=== PATIENT | female | born 1965 | race African-American/Black ===

== ENCOUNTER 2016-10-21 11:02 | Emergency (ER) | payer OTHER ==
[~2016-10-21] VITALS: Ht 172.7 cm; Wt 94.3 kg
[~2016-10-21 11:02] MED LIST: ACETAMINOPHEN-1 EAC1 PO; AMBIEN 5 MG TABL5 M1 PO; AMITRIPTYLINE H50 M2 GT; BRINTELLIX10 MG PO; DESYREL150 MG PO; FLEXERIL PO; IBUPROFEN 800800 M1 PO; LYRICA 50 MG50 MG PO; MEDROLDOSEPACK PO; NAPROSYN500 MG PO; NORCO 5-325 TA1 EACH PO; NORFLEX100 MG PO; ONDANSETRON HCL4 M2 PO; PERCOCET 10-321 EACH PO; PERCOCET 5-3251 EACH PO; PRISTIQ50 M1 PO; TESSALON200 MG PO; VISTARIL 25 MG25 M1 PO; ZPAK PO
[2016-10-21] MEDS ORDERED: LYRICA200 MG PO (11:29)
[2016-10-21 12:03] LABS: HEMATOCRIT 37.2 % (37.0-47.0); HEMOGLOBIN 12.5 gm/dL (12.0-15.0); MCH 28.5 pg (26.0-34.0); MCHC 33.7 % (28.0-37.0); MCV 84.3 fL (80.0-100.0); PLATELET COUNT 353 thou/uL (150-400); RBC 4.41 mil/uL (4.20-5.00); RDW 15.8 % (10.5-14.5); WBC 9.9 thou/uL (4.0-11.0)
[2016-10-21 12:05] LABS: MANUAL DIFF YES
[2016-10-21 12:11] LABS: ANION GAP 11 mmol/L (7-16); BUN 14 mg/dL (7-18); CHLORIDE 100 mmol/L (98-107); CO2 24 mmol/L (21-32); CREATININE 0.6 mg/dL (0.6-1.3); GLUCOSE 101 mg/dL (70-99); POTASSIUM 4.9 mmol/L (3.5-5.1); SODIUM 135 mmol/L (136-145)
[2016-10-21 12:15] LABS: SALICYLATE 9.6 mg/dL (2.8-20.0)
[2016-10-21 12:17] LABS: ACETAMINOPHEN < 2 ug/mL (10-30)
[2016-10-21 12:28] LABS: ABSOLUTE NEUTROPHILS 7.5 thou/uL (1.4-8.2); TOTAL CELL COUNT 100
[2016-10-21 13:05] LABS: URINE BILIRUBIN NEGATIVE (Negative); URINE BLOOD NEGATIVE (Negative); URINE COLOR YELLOW; URINE GLUCOSE-RANDOM* NEGATIVE (Negative); URINE KETONES TRACE (Negative); URINE LEUKOCYTES-REFLEX NEGATIVE (Negative); URINE PROTEIN (DIPSTICK) NEGATIVE (Negative); URINE SPECIFIC GRAVITY >= 1.030 (1.003-1.035); URINE UROBILINOGEN 0.2 E.U./dl (0.2-1.0)
[2016-10-21 13:20] LABS: AMP/METHAMP Negative (Negative); BARBITURATES Negative (Negative); BENZODIAZEPINES Negative (Negative); COCAINE Negative (Negative); METHADONE Negative (Negative); OPIATES POSITIVE (Negative); PCP Negative (Negative); THC POSITIVE (Negative)
[2016-10-21] MEDS ORDERED: ONDANSETRON HCL4 M2 PO (15:39)
[2016-11-11] MEDS ORDERED: LIORESAL 10 MG10 MG PO (17:33)
[2016-11-11] MEDS ORDERED: VENTOLIN HFA 1818 GM INH (18:35)
== END 2016-10-21 16:57 ==
LOC: ER 11:02
PROVIDERS: Physician Assistant
DX: F12.10 Cannabis abuse, uncomplicated (principal); G89.29 Other chronic pain; Z00.8 Encounter for other general examination; F32.9 Major depressive disorder, single episode, unspecified; F10.99 Alcohol use, unspecified with unspecified alcohol-induced disorder; Z91.040 Latex allergy status; Z88.8 Allergy status to other drugs, medicaments and biological substances

== ENCOUNTER 2018-11-19 18:46 | Emergency (ER) | payer OTHER ==
[~2018-11-19] VITALS: Ht 170.2 cm; Wt 88.9 kg
[~2018-11-19 18:46] MED LIST changes: +LIORESAL 10 MG10 MG PO; +LYRICA200 MG PO; +VENTOLIN HFA 1818 GM INH
[2018-11-19] MEDS ORDERED: TESSALON PERLE100 MG PO (20:00)
[2018-11-19] MEDS ORDERED: PREDNISONE 20 M20 M1 PO (20:05)
[2018-11-19 21:15] VITALS: BP 116/72
== END 2018-11-19 21:16 | disposition home or self-care (01) ==
LOC: ER 18:46
DX: J40 Bronchitis, not specified as acute or chronic (principal); F32.9 Major depressive disorder, single episode, unspecified; G89.29 Other chronic pain; F17.210 Nicotine dependence, cigarettes, uncomplicated; Z88.5 Allergy status to narcotic agent; Z91.040 Latex allergy status; Z88.8 Allergy status to other drugs, medicaments and biological substances